=== PATIENT | male | born 1970 | race Caucasian/White ===

== ENCOUNTER 2018-05-14 07:11 | Inpatient (IN) | payer MEDICAID, OTHER ==
[2018-05-14] MEDS ORDERED: ONDANSETRON 4 MG/2 ML VIAL IVP ONE (07:34)
[2018-05-14] MEDS ORDERED: HYDROmorphONE/DILAUDID 2 MG/ML INJ IVP ONE (07:34)
[2018-05-14] MEDS ORDERED: NS 1,000 ML IV ONE (07:34)
--- NOTE | 2018-05-14 07:38 | EDPHY ---
H & P Stated Complaint: L flank pain x 4 days Time Seen by Provider: 05/14/18 07:30 HPI/ROS: CHIEF COMPLAINT: Left flank pain HISTORY OF PRESENT ILLNESS: The patient is a 47-year-old man who comes to the emergency department complaining of left flank pain that wraps around to his left lower quadrant intermittently for the last 5 days. He describes it is severe. Nausea but no vomiting. No fevers. He also states he has not had a bowel movement in the last 5 days. He has never had pain like this before. No trauma. He cannot find a position of comfort. Patient only has 1 kidney. 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 Severity: Severe Modifying factors: None REVIEW OF SYSTEMS: Constitutional: denies: chills, fever, recent illness, recent injury EENTM: denies: blurred vision, double vision, nose congestion Respiratory: denies: cough, shortness of breath Cardiac: denies: chest pain, irregular heart rate, lightheadedness, palpitations Gastrointestinal/Abdominal: See HPI denies: diarrhea, nausea, vomiting, blood streaked stools Genitourinary: denies: dysuria, frequency, hematuria, pain Musculoskeletal: denies: joint pain, muscle pain Skin: denies: lesions, rash, jaundice, bruising Neurological: denies: headache, numbness, paresthesia, tingling, dizziness, weakness Hematologic/Lymphatic: denies: blood clots, easy bleeding, easy bruising Immunologic/allergic: denies: HIV/AIDS, transplant 10 systems reviewed and negative except as noted EXAM: GENERAL: Uncomfortable, pacing. HEAD: Atraumatic, normocephalic. EYES: Pupils equal round and reactive to light, extraocular movements intact, sclera anicteric, conjunctiva are normal. ENT: TMs normal, nares patent, oropharynx clear without exudates. Moist mucous membranes. NECK: Normal range of motion, supple without lymphadenopathy or JVD. LUNGS: Breath sounds clear to auscultation bilaterally and equal. No wheezes rales or rhonchi. HEART: Regular rate and rhythm without murmurs, rubs or gallops. ABDOMEN: Soft, nontender, normoactive bowel sounds. No guarding, no rebound. No masses appreciated. BACK: No CVA tenderness, no spinal tenderness, step-offs or deformities EXTREMITIES: Normal range of motion, no pitting or edema. No clubbing or cyanosis. NEUROLOGICAL: Cranial nerves II through XII grossly intact. Normal speech, normal gait. 5/5 strength, normal movement in all extremities, normal sensation , normal reflexes PSYCH: Normal mood, normal affect. SKIN: Warm, dry, normal turgor, no visible rashes or lesions. Source: Patient Exam Limitations: No limitations - Personal History Current Tetanus/Diphtheria Vaccine: No Current Tetanus Diphtheria and Acellular Pertussis (TDAP): No - Medical/Surgical History Hx Asthma: No Hx Chronic Respiratory Disease: No Hx Diabetes: No Hx Cardiac Disease: No Hx Renal Disease: No Hx Cirrhosis: No Hx Alcoholism: No Hx HIV/AIDS: No Hx Splenectomy or Spleen Trauma: No Other PMH: orthopedic. umbilical hernia - Family History Significant Family History: No pertinent family hx - Social History Smoking Status: Never smoked Alcohol Use: Sober Drug Use: None Constitutional: Initial Vital Signs Temperature (C) 36.5 C 05/14/18 07:15 Heart Rate 88 05/14/18 07:15 Respiratory Rate 16 05/14/18 07:15 Blood Pressure 143/104 H 05/14/18 07:15 O2 Sat (%) 99 05/14/18 07:15 O2 Delivery Mode Room Air Allergies/Adverse Reactions: No Known Allergies Allergy (Unverified 05/14/18 07:14) Home Medications: Medication Instructions Recorded NK [No Known Home Meds] 05/14/18 Medical Decision Making - Diagnostics Imaging Results: Imaging Impressions Abdomen/Pelvis CT 05/14/18 07:34 Impression: 1. Large calculus, 9 x 15 mm, at the junction of the left renal pelvis and ureter results in moderate left hydronephrosis (obstructed solitary left kidney) . 2. Absent right kidney. 3. Hepatic steatosis. Findings discussed with Emergency Department physician, Dr. Yeyo Harper at 0850 hours on May 14, 2018. Attention: This CT examination is specifically designed to evaluate patients who are clinically suspected of having acute obstructive uropathy. This examination does not use radiographic contrast, and as such, provides only a limited evaluation of the abdomen, pelvis and retroperitoneum. If there is further clinical suspicion for pathological conditions other than obstructive uropathy, a complete CT evaluation of the abdomen and pelvis utilizing intravenous, oral, and rectal contrast should be considered. Imaging: Discussed imaging studies w/ call center consultant Radiologist ED Course/Re-evaluation: 9:12 a.m. Patient has a large kidney stone blocking his 1 remaining kidney with perinephric edema and an elevated creatinine. I have spoke with the hospitalist service who will admit. I have paged urology. 9:40 a.m. I spoke with Dr. Tianna Larkin who will consult. He recommends we keep the patient NPO. Differential Diagnosis: Partial list of the Differential diagnosis considered include but were not limited to; kidney stone, urinary tract infection, obstruction and although unlikely based on the history and physical exam, I also considered diverticulitis, hernia. Critical Care Time: Critical care time spent by me, Dr. Harper exclusive with this patient was 35 minutes, exclusive of the PA time exclusive of procedures. The organ system that was at risk was renal and I gave IV fluids, consultation and admission to prevent worsening of the patient's condition - Data Points Laboratory Results: Laboratory Results 05/14/18 07:45 05/14/18 07:45 05/14/18 05/14/18 07:45 07:45 WBC 8.65 10^3/uL 10^3/uL (3.80-9.50) RBC 5.29 10^6/uL 10^6/uL (4.40-6.38) Hgb 14.8 g/dL g/dL (13.7-17.5) Hct 44.3 % % (40.0-51.0) MCV 83.7 fL fL (81.5-99.8) MCH 28.0 pg pg (27.9-34.1) MCHC 33.4 g/dL g/dL (32.4-36.7) RDW 13.0 % % (11.5-15.2) Plt Count 183 10^3/uL 10^3/uL (150-400) MPV 9.9 fL fL (8.7-11.7) Neut % (Auto) 75.2 % H % (39.3-74.2) Lymph % (Auto) 13.3 % L % (15.0-45.0) [place] % (Auto) 9.8 % % (4.5-13.0) Eos % (Auto) 1.0 % % (0.6-7.6) Baso % (Auto) 0.1 % L % (0.3-1.7) Nucleat RBC Rel Count 0.0 % % (0.0-0.2) Absolute Neuts (auto) 6.50 10^3/uL 10^3/uL (1.70-6.50) Absolute Lymphs (auto) 1.15 10^3/uL 10^3/uL (1.00-3.00) Absolute Monos (auto) 0.85 10^3/uL H 10^3/uL (0.30-0.80) Absolute Eos (auto) 0.09 10^3/uL 10^3/uL (0.03-0.40) Absolute Basos (auto) 0.01 10^3/uL L 10^3/uL (0.02-0.10) Absolute Nucleated RBC 0.00 10^3/uL 10^3/uL (0-0.01) Immature Gran % 0.6 % % (0.0-1.1) Immature Gran # 0.05 10^3/uL 10^3/uL (0.00-0.10) Sodium 135 mEq/L mEq/L (135-145) Potassium 4.6 mEq/L mEq/L (3.3-5.0) Chloride 95 mEq/L L mEq/L (97-110) Carbon Dioxide 28 mEq/l mEq/l (22-31) Anion Gap 12 mEq/L mEq/L (8-16) BUN 53 mg/dL H mg/dL (7-23) Creatinine 7.3 mg/dL H mg/dL (0.7-1.3) Estimated GFR 8 Glucose 99 mg/dL mg/dL (70-100) Calcium 9.8 mg/dL mg/dL (8.5-10.4) Total Bilirubin 0.4 mg/dL mg/dL (0.1-1.4) Conjugated Bilirubin 0.1 mg/dL mg/dL (0.0-0.5) Unconjugated Bilirubin 0.3 mg/dL mg/dL (0.0-1.1) AST 23 IU/L IU/L (17-59) ALT 38 IU/L IU/L (21-72) Alkaline Phosphatase 58 IU/L IU/L (38-126) Total Protein 5.8 g/dL L g/dL (6.3-8.2) Albumin 3.4 g/dL L g/dL (3.5-5.0) Lipase 92 IU/L IU/L (23-300) Medications Given: Hydromorphone HCl (Dilaudid) 0.2 - 0.4 mg IVP Q4HRS PRN PRN Reason: Pain, Severe Unable to Take PO Stop: 05/24/18 10:01 Last Admin: 05/14/18 11:16 Dose: 0.2 mg Ondansetron HCl (Zofran) 4 mg IVP Q4HRS PRN PRN Reason: Nausea/Vomiting, Can't Take PO Stop: 11/10/18 10:01 Last Admin: 05/14/18 11:22 Dose: 4 mg Discontinued Medications Hydromorphone HCl (Dilaudid) 1 mg IVP EDNOW ONE Stop: 05/14/18 07:35 Last Admin: 05/14/18 07:43 Dose: 1 mg Sodium Chloride (Ns) 1,000 mls @ 0 mls/hr IV EDNOW ONE; Wide Open PRN Reason: Protocol Stop: 05/14/18 07:35 Last Admin: 05/14/18 07:44 Dose: 1,000 mls Cefazolin Sodium/Dextrose (Ancef 2 Gm) 100 mls @ 200 mls/hr IV ONCALL ONE PRN Reason: Protocol Stop: 05/14/18 12:16 Last Admin: 05/14/18 15:03 Dose: Not Given Lactated Ringer's (Lr) 1,000 mls @ 0 mls/hr IV ONCE ONE PRN Reason: As Directed Stop: 05/14/18 12:11 Last Admin: 05/14/18 12:14 Dose: 1,000 mls Iopamidol (Isovue-M 300) Confirm Administered Dose 30 ml .ROUTE .STK-MED ONE Stop: 05/14/18 11:18 Last Admin: 05/14/18 13:18 Dose: 30 ml Lidocaine (Uroject Lidocaine 2% Jelly) Confirm Administered Dose 20 ml .ROUTE .STK-MED ONE Stop: 05/14/18 11:17 Last Admin: 05/14/18 13:19 Dose: 20 ml Ondansetron HCl (Zofran) 4 mg IVP EDNOW ONE Stop: 05/14/18 07:35 Last Admin: 05/14/18 07:44 Dose: 4 mg Departure - Departure Disposition: [facility] Acute Clinical Impression: Kidney stone on left side Hydronephrosis Qualifiers: Hydronephrosis type: unspecified Qualified Code(s): N13.30 - Unspecified hydronephrosis Renal failure, acute Qualifiers: Acute renal failure type: unspecified Qualified Code(s): N17.9 - Acute kidney failure, unspecified Condition: Fair
[2018-05-14 08:01] LABS: PLATELET COUNT 183 10^3/uL (150-400)
[2018-05-14] MEDS ORDERED: LORazepam 2 MG/ML INJ IVP PRN (10:02)
[2018-05-14] MEDS ORDERED: ACETAMINOPHEN 325 MG TAB PO PRN (10:02)
[2018-05-14] MEDS ORDERED: ONDANSETRON 4 MG/2 ML VIAL IVP PRN ×2 (10:02→12:38)
[2018-05-14] MEDS ORDERED: ONDANSETRON DISINTEGRATING 4 MG TAB PO PRN (10:02)
--- NOTE | 2018-05-14 10:09 | SOAPPROG ---
DAREN Progress Note Assessment/Plan: Assessment: Kidney stone on left side Acute single kidney with total obstruction and plan for stent, reviewed hx and CAT scan Hydronephrosis Acute related to the stone Renal failure, acute Acute related to the stone Plan: stent 05/14/18 10:08 Subjective: confused on rx, discussed dx, gravity of situation with creat 7.3. options discussed for rx of acute problem Objective: Vital Signs Temp Pulse Resp BP Pulse Ox 36.5 C 88 16 143/104 H 99 05/14/18 07:15 05/14/18 07:15 05/14/18 07:15 05/14/18 07:15 05/14/18 07:15 Physical Exam - Physical Exam General Appearance: alert Respiratory: No respiratory distress Cardiac/Chest: regular rate, rhythm Abdomen: soft Neuro/Psych: alert, oriented x 3 ICD10 Worksheet Patient Problems: Problems Problem Status Onset Hydronephrosis Acute Kidney stone on left side Acute Renal failure, acute Acute
--- NOTE | 2018-05-14 10:20 | PDGENHP ---
History and Physical - Chief Complaint left flank pain - History of Present Illness 47yo generally healthy M who presents with acute onset left flank pain radiating to his back. This pain was unbearable so came to ED. He denies any fevers, nausea, vomiting, diarrhea. In the ED, he was found to have a large left renal calculus with subsequent hydronephrosis. He does not have a right kidney, this was absent at . His creatinine was 7.3. No prior history of kidney stones. He reports having blood work done at PCP's office in last several months which were normal except for elevated cholesterol level. Dr Foss from urology was consulted and he was admitted for intervention and further observation. History Information - Allergies/Home Medication List Allergies/Adverse Reactions: No Known Allergies Allergy (Unverified 05/14/18 07:14) Home Medications: Amphet Asp and D/Amphet [Adderall 20 mg (*)] 20 mg PO DAILY@14 PRN 05/14/18 [ Last Taken 05/11/18] Dextroamphetamine/Amphetamine [Adderall Xr 30 mg Capsule] 30 mg PO DAILY [Last Taken 05/11/18] I have personally reviewed and updated: family history, medical history, social history, surgical history - Past Medical History Additional medical history: congenital absence of right kidney, HLD - Surgical History Additional surgical history: hernia repair - Family History Additional family history: no family history of kidney stones or renal issues - Social History Smoking Status: Never smoked Alcohol Use: None Drug Use: None Additional social history: originally from [place], lived in [place] for 15 years Review of Systems Review of Systems: ROS: 10pt was reviewed & negative except for what was stated in HPI & below Physical Exam Physical Exam: Temp Pulse Resp BP Pulse Ox 36.5 C 88 16 143/104 H 99 05/14/18 07:15 05/14/18 07:15 05/14/18 07:15 05/14/18 07:15 05/14/18 07:15 Constitutional: no apparent distress, appears nourished, not in pain Eyes: PERRL, anicteric sclera, EOMI Ears, Nose, Mouth, Throat: moist mucous membranes, hearing normal, ears appear normal, no oral mucosal ulcers Cardiovascular: regular rate and rhythym, no murmur, rub, or gallop, No edema Respiratory: no respiratory distress, no rales or rhonchi, clear to auscultation Gastrointestinal: normoactive bowel sounds, soft, non-tender abdomen, no palpable masses Genitourinary: no bladder fullness, no bladder tenderness, butt in urethra Skin: warm, normal color, no rashes or abrasions, no fluctuance, no induration, No mottled Musculoskeletal: full muscle strength, no muscle tenderness, normal joint ROM, no joint effusions Neurologic: AAOx3 Psychiatric: interacting appropriately, not anxious, not encephalopathic, thought process linear Lab Data & Imaging Review 05/14/18 07:45 05/14/18 07:45 WBC 8.65 10^3/uL (3.80-9.50) 05/14/18 07:45 RBC 5.29 10^6/uL (4.40-6.38) 05/14/18 07:45 Hgb 14.8 g/dL (13.7-17.5) 05/14/18 07:45 Hct 44.3 % (40.0-51.0) 05/14/18 07:45 MCV 83.7 fL (81.5-99.8) 05/14/18 07:45 MCH 28.0 pg (27.9-34.1) 05/14/18 07:45 MCHC 33.4 g/dL (32.4-36.7) 05/14/18 07:45 RDW 13.0 % (11.5-15.2) 05/14/18 07:45 Plt Count 183 10^3/uL (150-400) 05/14/18 07:45 MPV 9.9 fL (8.7-11.7) 05/14/18 07:45 Neut % (Auto) 75.2 % (39.3-74.2) H 05/14/18 07:45 Lymph % (Auto) 13.3 % (15.0-45.0) L 05/14/18 07:45 [place] % (Auto) 9.8 % (4.5-13.0) 05/14/18 07:45 Eos % (Auto) 1.0 % (0.6-7.6) 05/14/18 07:45 Baso % (Auto) 0.1 % (0.3-1.7) L 05/14/18 07:45 Nucleat RBC Rel Count 0.0 % (0.0-0.2) 05/14/18 07:45 Absolute Neuts (auto) 6.50 10^3/uL (1.70-6.50) 05/14/18 07:45 Absolute Lymphs (auto) 1.15 10^3/uL (1.00-3.00) 05/14/18 07:45 Absolute Monos (auto) 0.85 10^3/uL (0.30-0.80) H 05/14/18 07:45 Absolute Eos (auto) 0.09 10^3/uL (0.03-0.40) 05/14/18 07:45 Absolute Basos (auto) 0.01 10^3/uL (0.02-0.10) L 05/14/18 07:45 Absolute Nucleated RBC 0.00 10^3/uL (0-0.01) 05/14/18 07:45 Immature Gran % 0.6 % (0.0-1.1) 05/14/18 07:45 Immature Gran # 0.05 10^3/uL (0.00-0.10) 05/14/18 07:45 Sodium 135 mEq/L (135-145) 05/14/18 07:45 Potassium 4.6 mEq/L (3.3-5.0) 05/14/18 07:45 Chloride 95 mEq/L (97-110) L 05/14/18 07:45 Carbon Dioxide 28 mEq/l (22-31) 05/14/18 07:45 Anion Gap 12 mEq/L (8-16) 05/14/18 07:45 BUN 53 mg/dL (7-23) H 05/14/18 07:45 Creatinine 7.3 mg/dL (0.7-1.3) H 05/14/18 07:45 Estimated GFR 8 05/14/18 07:45 Glucose 99 mg/dL (70-100) 05/14/18 07:45 Calcium 9.8 mg/dL (8.5-10.4) 05/14/18 07:45 Total Bilirubin 0.4 mg/dL (0.1-1.4) 05/14/18 07:45 Conjugated Bilirubin 0.1 mg/dL (0.0-0.5) 05/14/18 07:45 Unconjugated Bilirubin 0.3 mg/dL (0.0-1.1) 05/14/18 07:45 AST 23 IU/L (17-59) 05/14/18 07:45 ALT 38 IU/L (21-72) 05/14/18 07:45 Alkaline Phosphatase 58 IU/L (38-126) 05/14/18 07:45 Total Protein 5.8 g/dL (6.3-8.2) L 05/14/18 07:45 Albumin 3.4 g/dL (3.5-5.0) L 05/14/18 07:45 Lipase 92 IU/L (23-300) 05/14/18 07:45 Assessment & Plan Assessment: 47yo M with congenital absence of R kidney presents with large left nephrolithiasis causing obstructive nephropathy. Plan: #Obstructive nephropathy 2/2 large left nephrolithiasis: Cr 7.3. Suspect some chronicity of obstruction given stability of electrolytes. First kidney stone. - S/p L ureteral stent placement by Dr Foss. Will re-assess for stone removal once creatinine improves. - Butt in place - BMP in AM - Send UA with microsopy, urine P/Cr, urine sodium - Start flomax - IVF - Pain control - No indication for antibiotics - Will discuss with nephrology in AM pending renal improvement Diet: regular VTE ppx: SCDs Code: full Dispo: Admit as inpatient for management of above given degree of renal failure.
[2018-05-14] MEDS: HYDROmorphONE/DILAUDID 1 MG/ML INJ IVP PRN ×3 (10:32→21:08)
[2018-05-14] MEDS ORDERED: LIDOCAINE 2% JELLY 20 ML (UROJECT) ONE (11:16)
[2018-05-14] MEDS ORDERED: IOPAMIDOL (ISOVUE-M 300) 15 ML VIAL ONE (11:17)
[2018-05-14] MEDS ORDERED: ceFAZolin 2 GM/DEXTROSE 100 ML IV ONE (11:47)
--- NOTE | 2018-05-14 12:01 | PDANEPAE ---
ANE Past Medical History - Pulmonary History Hx Oxygen in Use at Home: No Hx Sleep Apnea: No - Endocrine History Hx Diabetes: No - Chronic Pain History Chronic Pain: No ANE Review of Systems Review of Systems: ANE Patient History - Allergies Allergies/Adverse Reactions: No Known Allergies Allergy (Unverified 05/14/18 07:14) - Home Medications Home Medications: NK [No Known Home Meds] 05/14/18 [Last Taken Unknown] - Smoking Hx Smoking Status: Never smoked - Alcohol Use Alcohol Use: None ANE Labs/Vital Signs - Labs Result Diagrams: 05/14/18 07:45 05/14/18 07:45 - Vital Signs Blood Pressure: 149/94 Heart Rate: 75 Respiratory Rate: 20 O2 Sat (%): 92 Height: 172.72 cm Weight: 85.321 kg ANE Physical Exam - Airway Neck exam: FROM Mallampati Score: Class 1 Mouth exam: normal dental/mouth exam - Pulmonary Pulmonary: no respiratory distress, no rales or rhonchi, clear to auscultation - Cardiovascular Cardiovascular: regular rate and rhythym, no murmur, rub, or gallop - ASA Status ASA Status: III ANE Anesthesia Plan Anesthesia Plan: GA with mask
[2018-05-14] MEDS ORDERED: LR 1,000 ML IV ONE (12:10)
[2018-05-14] MEDS ORDERED: MIDAZOLAM 2 MG/2 ML VIAL ONE (12:27)
[2018-05-14] MEDS ORDERED: fentaNYL 100 MCG/2 ML INJ ONE (12:27)
[2018-05-14] MEDS ORDERED: PROPOFOL/EMULSION 500 MG/50 ML BOTTLE IV ONE (12:27)
[2018-05-14] MEDS ORDERED: ALBUTEROL 3 ML DEYVIAL IH PRN (12:38)
[2018-05-14] MEDS ORDERED: NALOXONE HCL 0.4 MG/ML INJ IVP PRN (12:38)
[2018-05-14] MEDS ORDERED: fentaNYL 100 MCG/2 ML INJ IVP PRN (12:38)
[2018-05-14] MEDS ORDERED: DEXAMETHASONE 4 MG/ML VIAL IVP PRN (12:38)
[2018-05-14] MEDS ORDERED: ONDANSETRON 4 MG/2 ML VIAL ONE (12:38)
[2018-05-14] MEDS ORDERED: LIDOCAINE 2% 2 ML INJ ONE (12:38)
[2018-05-14] MEDS ORDERED: LR 500 ML IV PRN (12:38)
[2018-05-14] MEDS ORDERED: NEOSTIGMINE METHYLSULFATE 5 MG/5 ML SYR ONE (12:52)
[2018-05-14] MEDS ORDERED: CISATRACURIUM BESYLATE 20 MG/10 ML VIAL IV ONE (12:52)
[2018-05-14] MEDS ORDERED: GLYCOPYRROLATE 0.2 MG/1 ML VIAL ONE (12:52)
--- NOTE | 2018-05-14 13:10 | GCON ---
DATE OF CONSULTATION: 05/14/2018 HISTORY OF PRESENT ILLNESS: This is a 47-year-old gentleman who was admitted through the emergency r oom because of a creatinine of 7.3, left flank pain. Then on CAT, it was noted he had a single kidne y on the left with hydronephrosis and a large impacted stone just below the ureteropelvic junction. So he is admitted for intervention. PAST MEDICAL HISTORY: Noncontributory. PHYSICAL EXAM: GENERAL: Alert and oriented x3. He was a bit recalcitrant to have any procedure per formed, but after I discussed the gravity of the procedure, he agreed to undergo ureteroscopy. Abdom en: Normal, with no rebound or guarding. HEART: Regular rate and rhythm. LUNGS: Clear. FLANK: Has some tenderness on the left. LOWER EXTREMITIES: Normal. PLAN: At the present time I have discussed the detail with the procedure. I have reviewed his CAT s can. I have spent 45 minutes with this encounter with the patient, and he is to undergo the above pr ocedure of possible ureteroscopy and attempted stent placement with dislodgement of stone. /[id number]/MODL
--- NOTE | 2018-05-14 13:15 | GOP ---
DATE OF OPERATION: 05/14/2018 SURGEON: Sam Foss MD ANESTHESIA: General ANESTHESIOLOGIST: Milly Cohen MD PREOPERATIVE DIAGNOSIS: Unilateral kidney with total obstruction from ureteral calculus, and uremia with a creatinine of 7.3 preoperatively. POSTOPERATIVE DIAGNOSIS: Unilateral kidney with total obstruction from ureteral calculus, and uremia with a creatinine of 7.3 preoperatively. PROCEDURE PERFORMED: Cystoscopy, retrograde ureteral pyelogram, dislodgement of stone, and placement of a ureteral stent under fluoroscopic control. FINDINGS: SPECIMENS: None. DESCRIPTION OF PROCEDURE: The gentleman underwent general anesthesia. Prepped and draped in normal sterile fashion in the dorsal lithotomy position. Urethra was normal. Prostate was normal. Bladder had no tumor, stones, foreign bodies, or diverticula. The left ureteral orifice was cannulated. Po llack catheter retrograde revealed the impacted stone, and I could pass a guidewire through that and go up beyond the stone. With manipulation, was able to dislodge the stone, and then I passed a 7 x m ulti-length ureteral stent that curled in the renal pelvis, curled in the bladder. Shah catheter wa s passed that was 16-Urdu after placing Uro-Jet in the urethra. He will be a continued admission f or postop. After his creatinine improves, will address how to treat his stone. COMPLICATIONS: None. /[id number]/MODL
--- NOTE | 2018-05-14 14:25 | PDANEPAE ---
ANE Past Medical History - Pulmonary History Hx Oxygen in Use at Home: No Hx Sleep Apnea: No Sleep Apnea Screening Result - Last Documented: Negative - Endocrine History Hx Diabetes: No - Chronic Pain History Chronic Pain: No ANE Review of Systems Review of Systems: ANE Patient History - Allergies Allergies/Adverse Reactions: No Known Allergies Allergy (Unverified 05/14/18 07:14) - Home Medications Home Medications: NK [No Known Home Meds] 05/14/18 [Last Taken Unknown] - NPO status NPO Since - Liquids (Date): 05/14/18 NPO Since - Liquids (Time): 10:45 NPO Since - Solids (Date): 05/13/18 NPO Since - Solids (Time): 00:01 - Smoking Hx Smoking Status: Never smoked - Alcohol Use Alcohol Use: None ANE Labs/Vital Signs - Labs Result Diagrams: 05/14/18 07:45 05/14/18 07:45 - Vital Signs Blood Pressure: 144/86 Heart Rate: 70 Respiratory Rate: 18 O2 Sat (%): 97 Height: 172.72 cm Weight: 85.321 kg
[2018-05-14] MEDS: TAMSULOSIN HCL 0.4 MG CAP PO SCH (15:36)
--- NOTE | 2018-05-14 17:43 | POSTOPPROG ---
Post Op Note Date of Operation: 05/14/18 (dictated) Surgeon: Sam Foss Anesthesiologist: Vicki Anesthesia: LMA Pre-op Diagnosis: stone, renal failure, hydronephrosis Procedure: cysto / stent / fluroscopy Inf/Abcess present in the surg proc area at time of surgery?: No EBL: Minimal Drains: Other (stent)
[2018-05-14] MEDS: LR 1,000 ML IV SCH (18:34)
--- NOTE | 2018-05-14 20:56 | POSTANESTH ---
Post Anesthetic Evaluation Cardiovascular Status: Normal, Stable, Similar to Pre-Op Cond Respiratory Status: Normal, Stable, Similar to Pre-op Cond. Level of Consciousness/Mental Status: Mildly Sleepy, Arousable Pain Control: Adequate, Prn Tx Ordered Nausea/Vomiting Control: Adequate, Prn Tx Ordered Complications Possibly Related to Anesthesia: None Noted
--- NOTE | 2018-05-15 06:55 | SOAPPROG ---
DAREN Progress Note Assessment/Plan: Assessment: Kidney stone on left side Acute single kidney with total obstruction and placed stent on 05/14/2018 and great result with improved creat and fluid management seemed appropriate Hydronephrosis Acute related to the stone Renal failure, acute Acute related to the stone Plan: stent in, will consider stone rx in future after total recovery, pt to be DCed at Hospitalist assessment and follow up in office in one week 05/15/18 06:54 Subjective: doing well, sleeping at intial visit and pt awakened Objective: Vital Signs Temp Pulse Resp BP Pulse Ox 36.9 C 89 18 129/74 H 90 L 05/14/18 23:12 05/14/18 23:12 05/14/18 23:12 05/14/18 23:12 05/14/18 23:12 Laboratory Results 05/15/18 04:42 05/14/18 05/15/18 05/16/18 05:59 05:59 05:59 Intake Total 6650 Output Total 8060 Balance -1410 Physical Exam - Physical Exam General Appearance: alert Respiratory: No respiratory distress Cardiac/Chest: regular rate, rhythm Abdomen: soft Neuro/Psych: alert, oriented x 3 ICD10 Worksheet Patient Problems: Problems Problem Status Onset Hydronephrosis Acute Kidney stone on left side Acute Renal failure, acute Acute
[2018-05-15] MEDS: LR 1,000 ML IV SCH (07:49)
[2018-05-15] MEDS: TAMSULOSIN HCL 0.4 MG CAP PO SCH (09:00)
[2018-05-15] MEDS ORDERED: POLYETHYLENE GLYCOL 3350 17 GM PKT PO ONE (10:59)
[2018-05-15] MEDS: HYDROCODONE/APAP 5/325 TAB PO PRN ×3 (11:09→22:21)
--- NOTE | 2018-05-15 11:38 | HOSPPROG ---
Hospitalist Progress Note Assessment/Plan: #Obstructive nephropathy 2/2 large left nephrolithiasis: Cr 7.3->2.1 after obstruction relieved and IVF. - S/p L ureteral stent placement by Dr Foss - Plan to follow up with urology next week and then [facility] in a few weeks - Shah removed - Continue flomax - No indication for antibiotics #Abdominal pain: Related to constipation. Not taking much PO - Hydrocodone/APAP - Bowel regimen Diet: regular VTE ppx: SCDs Code: full Dispo: Continue admission for management of pain; unsafe for discharge at present as not tolerating PO. Subjective: Not doing well this AM. Lots of abdominal pain, hasn't had BM. Urinated a few times, less blood each time. Only had one episode of colicky flank pain. No fevers Objective: Vital Signs Temp Pulse Resp BP Pulse Ox 36.9 C 91 18 138/83 H 90 L 05/15/18 07:37 05/15/18 07:37 05/15/18 07:37 05/15/18 07:37 05/15/18 07:37 Laboratory Results 05/15/18 04:42 05/14/18 05/15/18 05/16/18 05:59 05:59 05:59 Intake Total 6650 Output Total 8060 Balance -1410 - Physical Exam Constitutional: no apparent distress, uncomfortable Eyes: PERRL, anicteric sclera, EOMI Ears, Nose, Mouth, Throat: moist mucous membranes, hearing normal, ears appear normal, no oral mucosal ulcers Cardiovascular: regular rate and rhythym, no murmur, rub, or gallop Respiratory: no respiratory distress, no rales or rhonchi, clear to auscultation Gastrointestinal: normoactive bowel sounds, soft, non-tender abdomen, no palpable masses Genitourinary: no bladder fullness, no bladder tenderness, no renal bruits Skin: no rashes or abrasions, no fluctuance, no induration Musculoskeletal: full muscle strength, no muscle tenderness, normal joint ROM Neurologic: AAOx3, sensation intact bilaterally Psychiatric: interacting appropriately, not anxious, not encephalopathic, thought process linear ICD10 Worksheet Patient Problems: Problems Problem Status Onset Hydronephrosis Acute Kidney stone on left side Acute Renal failure, acute Acute
[2018-05-15] MEDS ORDERED: ADDERALL 20 MG TAB PO PRN (14:00)
--- NOTE | 2018-05-15 16:10 | PDMN ---
Medical Necessity Medical necessity: Pt meets IP criteria per & MELINDA [id number]; est los >2 mn for renal failure w/obstructive nephropathy secondary to large L nephrolithiasis w/ Cr of 7.3; requiring further workup/monitoring, Nephrology consult, IVFs & pain management; hx congenital absence of R kidney; per H&P & order 05/14/18
[2018-05-15] MEDS ORDERED: POLYETHYLENE GLYCOL 3350 17 GM PKT PO PRN (16:45)
[2018-05-15] MEDS ORDERED: LACTULOSE 20 GM/30 ML UDCUP PO PRN (16:45)
[2018-05-15] MEDS ORDERED: MAGNESIUM HYDROXIDE 30 ML UDCUP PO PRN (16:45)
[2018-05-15] MEDS ORDERED: BISACODYL 10 MG SUPP PR PRN (16:45)
--- NOTE | 2018-05-15 16:49 | ASMTCMCOM ---
CM Note CM Note Notes: Spoke w/RN, pt admitted for large kidney stone. Anticipate will dc home independent when medically stable. CM available for any changes. DC Plan: Independent Date Signed: 05/15/2018 04:48 PM Electronically Signed By:Emily Roldan RN
[2018-05-15] MEDS: SENNOSIDES/DOCUSATE SODIUM TAB PO SCH ×2 (16:50→20:47)
--- NOTE | 2018-05-16 07:19 | SOAPPROG ---
[facility] Progress Note Assessment/Plan: Assessment: Kidney stone on left side Acute single kidney with total obstruction and placed stent on 05/14/2018 and great result with improved creat and fluid management seemed appropriate Hydronephrosis Acute related to the stone Renal failure, acute Acute related to the stone Plan: stent in, will consider stone rx in future after total recovery, pt to be DCed at Hospitalist assessment and follow up in office in one week 05/16/18 07:19 Subjective: better Objective: Vital Signs Temp Pulse Resp BP Pulse Ox 36.9 C 71 16 130/79 H 91 L 05/15/18 23:39 05/15/18 23:39 05/15/18 23:39 05/15/18 23:39 05/15/18 23:39 Laboratory Results 05/16/18 04:30 05/15/18 05/16/18 05/17/18 05:59 05:59 05:59 Intake Total 6650 Output Total 8060 Balance -1410 Physical Exam - Physical Exam General Appearance: alert Neck: supple Respiratory: No respiratory distress ICD10 Worksheet Patient Problems: Problems Problem Status Onset Hydronephrosis Acute Kidney stone on left side Acute Renal failure, acute Acute
[2018-05-16 07:55] VITALS: BP 138/86
[2018-05-16] MEDS: SENNOSIDES/DOCUSATE SODIUM TAB PO SCH (08:19)
[2018-05-16] MEDS: TAMSULOSIN HCL 0.4 MG CAP PO SCH (08:19)
--- NOTE | 2018-05-16 20:06 | PDDCSUM ---
Discharge Summary Discharge Summary: Date of Admission: 05/14/2018 Date of Discharge: 05/16/2018 Consultants: urology Procedures: ureteroscopy with left ureteral stent placement Discharge Diagnoses: 1. PERNELL 2/2 obstructive nephropathy 2. Large left nephrolithiasis 3. Congenital absence of R kidney Brief Hospital Course: 47yo M with history of congenital solitary kidney presented with acute left flank pain found to have large left kidney stone (1.5cm) complicated by obstructive nephropathy with an initial creatinine of 7.3. Dr Foss of urology placed ureteral stent and creatinine improved to 1.0 at discharge. He was started on flomax and given a small number of norco to help with pain. He will follow up with Dr Foss next week with plan to set up lithotripsy at that time. Medications: Please refer to EMR for complete list. Changes this admission include addition of flomax, norco. Follow Up Plan: 1. Clinic visit with Dr Foss of urology next week 2. Plan for ESWL Physical Exam: Vitals reviewed and stable. Alert and oriented, RRR, lungs clear , abdomen soft and nontender, no rashes.
== END 2018-05-16 09:59 | disposition home or self-care (01) | DRG 465 ==
LOC: OBSVTOIN 10:04 → F3E 10:16
PROVIDERS: ADMIT Internal Medicine; ATTEND Internal Medicine
PROC: 0T9 Urinary System, Drainage (ICD-10-PCS; principal; 2018-05-14 12:00)
PROC: BT121ZZ Fluoroscopy of Left Kidney using Low Osmolar Contrast (ICD-10-PCS; principal; 2018-05-14 12:00)
DX: N13.2 Hydronephrosis with renal and ureteral calculous obstruction (principal); N17.9 Acute kidney failure, unspecified; Q60.0 Renal agenesis, unilateral; K59.00 Constipation, unspecified
CPT/HCPCS: 96374; C1758; C1769; C2625; J0690; J1170; J2060; J2250; J2405; J2704; J2710; J3010; Q9967

== ENCOUNTER → 2018-05-22 | Outpatient (CLI) | payer MEDICAID | LOC: FIMAGING 12:45 | PROVIDERS: ATTEND Specialist | DX: Z09 Encounter for follow-up examination after completed treatment for conditions other than malignant neoplasm (principal); N20.1 Calculus of ureter; N13.30 Unspecified hydronephrosis; N19 Unspecified kidney failure ==

== ENCOUNTER → 2018-06-10 | Outpatient (CLI) | payer MEDICAID | LOC: FIMAGING 08:26 | PROVIDERS: ATTEND Specialist | DX: Z87.442 Personal history of urinary calculi (principal); Z96.0 Presence of urogenital implants ==

== ENCOUNTER → 2018-06-25 | Outpatient (CLI) | payer MEDICAID | LOC: FIMAGING 14:06 | PROVIDERS: ATTEND Internal Medicine | DX: N20.0 Calculus of kidney (principal); K59.00 Constipation, unspecified; Q60.0 Renal agenesis, unilateral; N28.81 Hypertrophy of kidney ==